=== PATIENT | male | born 1950 | race African-American/Black ===

== ENCOUNTER 2022-07-27 09:00 | Outpatient (CLI) | payer OTHER ==
[2022-07-27 10:58] LABS: Hemoglobin 12.7 g/dL (13.5-17.5); Mean Corpuscular HGB CONC 33.5 g/dL (32.0-36.0); Mean Corpuscular Hemoglobin 29.1 pg (27.0-33.0); Mean Corpuscular Volume 86.7 fl (81.2-95.1); Mean Platelet Volume 12.1 fl (7.4-10.4); Platelet Count 136 10x3/uL (150-450); RBC Distribution Width 13.4 % (11.5-14.5); Red Blood Cell (RBC) Count 4.37 10x6/uL (4.32-5.72); White Blood Cell (WBC) Count 4.8 10x3/uL (3.5-10.5)
[2022-07-27 10:59] LABS: Anion Gap 12 mmol/L (10-20); BUN (Urea Nitrogen) 18 mg/dL (8.4-25.7); Calc. Creatinine Clearance 0 mL/min (70-130); Carbon Dioxide 26 mmol/L (23-31); Chloride 102 mmol/L (98-107); Estimated GFR 88; Glucose 208 mg/dL (83-110); Potassium 4.3 mmol/L (3.5-5.1); Sodium 136 mmol/L (136-145)
[2022-07-27 11:12] LABS: INR-International Normal Ratio 1.1; PTT 29.2 sec (22.0-33.0); Prothrombin Time 11.4 sec (9.5-12.1)
== END 2022-07-27 09:01 | disposition home or self-care (01) ==
LOC: LABBT 09:00
PROVIDERS: ATTEND Urology
DX: Z01.818 Encounter for other preprocedural examination (principal); Z20.822 Contact with and (suspected) exposure to COVID-19
CPT/HCPCS: 80048; 85027; 85610; 85730; 87811; 93005; 93010

== ENCOUNTER 2022-07-30 09:10 | Observation (INO) | payer OTHER ==
[2022-07-28 13:58] VITALS: BMI 25.0
[2022-07-30] MEDS ORDERED: fentaNYL Citrate/PF 100 MCG/2 ML SYRINGE ONE (09:17)
[2022-07-30] MEDS ORDERED: Propofol 1,000 MG/100 ML VIAL IV ONE (09:18)
[2022-07-30] MEDS ORDERED: Lidocaine 1% MPF 2 ML VIAL ONE ×2 (12:00→12:22)
[2022-07-30] MEDS ORDERED: cefTRIAXone\\ROCEPHIN 1 GM VIAL ONE (12:08)
[2022-07-30] MEDS ORDERED: Sodium Chloride 0.9% 100 ML ONE (12:08)
[2022-07-30] MEDS ORDERED: PROPOFOL 200 MG/20 ML VIAL ONE (12:22)
[2022-07-30] MEDS ORDERED: Mag-Al 1200 mg/1200 mg/30 ML UDCUP PO PRN (14:59)
[2022-07-30] MEDS ORDERED: diphenhydrAMINE 25 MG CAP PO PRN (14:59)
[2022-07-30] MEDS ORDERED: Acetaminophen 500 MG TAB PO PRN (14:59)
[2022-07-30] MEDS ORDERED: Ondansetron PF 4 MG/2 ML Vial IVP PRN (14:59)
[2022-07-30] MEDS ORDERED: Oxybutynin 5 MG TAB PO PRN (14:59)
[2022-07-30] MEDS ORDERED: hydrALAZINE 20 MG/ML VIAL SLOW IVP PRN (14:59)
[2022-07-30] MEDS ORDERED: Insulin Regular 300 UNITS/3 ML VIAL SC PRN (15:01)
[2022-07-30] MEDS ORDERED: Dextrose 50% Abboject 50 ML SYRINGE SLOW IVP PRN (15:01)
[2022-07-30] MEDS ORDERED: Dextrose 5% in Water 1,000 ML IV PRN (15:01)
[2022-07-30 18:15] LABS: Hemoglobin 11.8 g/dL (14.0-18.0); Platelet Count 111 thou/uL (130-400)
[2022-07-30] MEDS: metFORMIN 500 MG TAB PO SCH (18:24)
[2022-07-30] MEDS: Carvedilol 25 MG TAB PO SCH (20:03)
[2022-07-30] MEDS: Rosuvastatin 10 MG TAB PO SCH (20:03)
[2022-07-30] MEDS: Docusate 100 MG CAP PO SCH (20:03)
[2022-07-30 23:15] LABS: Hemoglobin 10.7 g/dL (14.0-18.0); Platelet Count 111 thou/uL (130-400)
[2022-07-31 03:56] LABS: Hemoglobin 11.2 g/dL (14.0-18.0); Platelet Count 112 thou/uL (130-400)
[2022-07-31 07:23] LABS: Hemoglobin 11.8 g/dL (14.0-18.0); Platelet Count 109 thou/uL (130-400)
[2022-07-31] MEDS: Gabapentin 300 MG CAP PO SCH (09:43)
[2022-07-31] MEDS: metFORMIN 500 MG TAB PO SCH ×2 (09:43→17:02)
[2022-07-31] MEDS: Docusate 100 MG CAP PO SCH ×2 (09:43→20:48)
[2022-07-31] MEDS: Finasteride 5 MG TAB PO SCH (09:43)
[2022-07-31] MEDS: Tamsulosin HCl 0.4 MG CAP PO SCH (09:43)
[2022-07-31] MEDS: Carvedilol 25 MG TAB PO SCH ×3 (09:44→20:48)
[2022-07-31] MEDS: Sodium Chloride 0.9% 1,000 ML IV SCH ×2 (10:01→22:44)
[2022-07-31] MEDS ORDERED: Fleet Enema 133 ML BOT PR SCH (10:15)
[2022-07-31 11:34] LABS: Hemoglobin 10.8 g/dL (14.0-18.0); Platelet Count 111 thou/uL (130-400)
[2022-07-31] MEDS ORDERED: cefTRIAXone\\ROCEPHIN 1 GM in Sodium Chloride 0.9% 100 ML IVPB SCH (12:00)
[2022-07-31] MEDS ORDERED: PROPOFOL 200 MG/20 ML VIAL ONE (15:06)
[2022-07-31] MEDS: Rosuvastatin 10 MG TAB PO SCH (20:48)
[2022-08-01 06:19] LABS: #Eosinphils 0.1 thou/uL (0.0-0.7); #Lymphocytes 1.4 thou/uL (1.20-3.40); #Monocytes 0.4 thou/uL (0.11-0.59); #Neutrophils 2.7 thou/uL (1.40-6.50); %Basophils 0.2 % (0.0-1.0); %Eosinophils 1.6 % (0.0-10.0); %Monocytes 9.5 % (0.0-10.0); %Neutrophils 57.7 % (42.0-75.0); Hemoglobin 9.5 g/dL (14.0-18.0); Mean Corpuscular HGB CONC 32.3 g/dL (32.0-36.0); Mean Corpuscular Hemoglobin 29.7 pg (27.0-31.0); Mean Platelet Volume 10.1 fL (7.4-10.4); Platelet Count 98 thou/uL (130-400); Platelet Morphology Comment Appears Decreased; RBC Distribution Width 12.3 % (11.5-14.5); Red Blood Cell (RBC) Count 3.21 mill/uL (4.70-6.10); White Blood Cell (WBC) Count 4.6 thou/uL (4.8-10.8)
[2022-08-01] MEDS: Sodium Chloride 0.9% 1,000 ML IV SCH (08:49)
[2022-08-01] MEDS: metFORMIN 500 MG TAB PO SCH (08:50)
[2022-08-01] MEDS: Finasteride 5 MG TAB PO SCH (08:50)
[2022-08-01] MEDS: Tamsulosin HCl 0.4 MG CAP PO SCH (08:50)
[2022-08-01] MEDS: Carvedilol 25 MG TAB PO SCH (08:51)
[2022-08-01] MEDS: Gabapentin 300 MG CAP PO SCH (08:51)
[2022-08-01] MEDS: Docusate 100 MG CAP PO SCH (10:19)
[2022-08-01 11:30] VITALS: BP 118/63; TEMP 98.4
== END 2022-08-01 13:29 | disposition home or self-care (01) ==
LOC: SDC 09:10 → SURG A 15:40
PROVIDERS: ADMIT Urology; ATTEND Urology
PROC: 0VB03ZX Excision of Prostate, Percutaneous Approach, Diagnostic (ICD-10-PCS; principal; 2022-07-30)
PROC: 0W3P8ZZ Control Bleeding in Gastrointestinal Tract, Via Natural or Artificial Opening Endoscopic (ICD-10-PCS; 2022-07-31)
DX: C61 Malignant neoplasm of prostate (principal); N42.32 Atypical small acinar proliferation of prostate; S36.63XA Laceration of rectum, initial encounter; D50.0 Iron deficiency anemia secondary to blood loss (chronic); I10 Essential (primary) hypertension; E78.5 Hyperlipidemia, unspecified; E11.40 Type 2 diabetes mellitus with diabetic neuropathy, unspecified; N40.1 Benign prostatic hyperplasia with lower urinary tract symptoms; R33.8 Other retention of urine; N13.8 Other obstructive and reflux uropathy; N52.9 Male erectile dysfunction, unspecified; Z85.038 Personal history of other malignant neoplasm of large intestine; Z79.84 Long term (current) use of oral hypoglycemic drugs; Z79.899 Other long term (current) drug therapy; Z88.1 Allergy status to other antibiotic agents; Z88.8 Allergy status to other drugs, medicaments and biological substances; Z90.49 Acquired absence of other specified parts of digestive tract; X58.XXXA Exposure to other specified factors, initial encounter
CPT/HCPCS: 45334; 55700; 82962 ×3; 85014 ×2; 85018 ×2; 85025; 85049 ×2; C1776; 36415; 36416; G0416; J0696; J2704; J3490; J7050

== ENCOUNTER 2022-08-30 08:45 | Outpatient (CLI) | payer OTHER | END 2022-08-30 08:46 | disposition home or self-care (01) | LOC: NM 08:45 | PROVIDERS: ATTEND Urology | DX: C61 Malignant neoplasm of prostate (principal); R94.8 Abnormal results of function studies of other organs and systems | CPT/HCPCS: 78306; A9503 ==

== ENCOUNTER 2023-03-24 08:37 | Outpatient (CLI) | payer OTHER ==
[2023-03-24] MEDS ORDERED: Magnevist 469MG/ML 20 ML VIAL ONE (10:43)
== END 2023-03-24 08:38 | disposition home or self-care (01) ==
LOC: TBSIIMAG 08:37
PROVIDERS: ATTEND Urology
DX: C61 Malignant neoplasm of prostate (principal); C77.9 Secondary and unspecified malignant neoplasm of lymph node, unspecified; C79.51 Secondary malignant neoplasm of bone
CPT/HCPCS: 72197

== ENCOUNTER 2023-07-08 07:39 | Outpatient (CLI) | payer OTHER ==
[2023-07-08] MEDS ORDERED: Iopamidol 370 76% 100 ML VIAL ONE (11:04)
== END 2023-07-08 07:40 | disposition home or self-care (01) ==
LOC: NM 07:39
PROVIDERS: ATTEND Internal Medicine Hematology & Oncology
DX: C79.51 Secondary malignant neoplasm of bone (principal); C61 Malignant neoplasm of prostate
CPT/HCPCS: 71260; 74177; 78306; A9537; Q9967